=== PATIENT | female | born 1950 | race Caucasian/White ===

== ENCOUNTER → 2016-04-29 | Outpatient (CLI) | payer BC ==
[~2016-04-29] MED LIST: ATEN-174 PO; CALC-214 PO; ESCI1TAB10 PO; FISHOIL PO; FLNIN NAE; HYDR-5688 PO; HYDR25TA4 PO; MISCCAP80 PO; MULT-506 PO; VITAMIN D PO
--- NOTE | 2016-04-30 12:39 | MAMMOGRAPHY REPORT ---
BILATERAL DIGITAL SCREENING MAMMOGRAM TOMOSYNTHESIS WITH CAD: 04/29/2016 CLINICAL HISTORY: Routine screening. Patient has no complaints. TECHNIQUE: Breast tomosynthesis in addition to standard 2D mammography was performed. Current study was also evaluated with a Computer Aided Detection (CAD) system. COMPARISON: Comparison is made to exams dated: 04/26/2015 mammogram, 04/22/2013 mammogram, 04/25/2014 malachi mogram, 04/20/2012 mammogram, 04/18/2011 mammogram, and 04/06/2010 mammogram - [facility]. BREAST COMPOSITION: The tissue of both breasts is almost entirely fatty. FINDINGS: There are a few benign rim calcifications bilaterally. No suspicious mass, architectural distortion or cluster of microcalcifications is seen. IMPRESSION: ACR BI-RADS CATEGORY 1: NEGATIVE There is no mammographic evidence of malignancy. A 1 year screening mammogram is recommended. The p atient will receive written notification of the results. Approximately 10% of breast cancers are not detected with mammography. A negative mammographic repor t should not delay biopsy if a clinically suggestive mass is present. Danica Rees M.D. ay/:04/29/2016 16:30:54 Activity Therapy Teacher: Myranda LEO(Michelle)(M), [facility] letter sent: Normal 1/2 BI-RADS Code: ACR BI-RADS Category 1: Negative
== END | disposition home or self-care (01) ==
LOC: C.MAMM 11:09
PROVIDERS: ATTEND Obstetrics & Gynecology
DX: Z12.31 Encounter for screening mammogram for malignant neoplasm of breast (principal)

== ENCOUNTER → 2016-05-21 | Day surgery (SDC) | payer BC ==
[2016-05-07 10:40] VITALS: Ht 180.3 cm; Wt 97.7 kg
[2016-05-14 12:20] LABS: HEMATOCRIT 43.9 % (37-47); MEAN CELL VOLUME 88.3 fL (80-100); MEAN CORPUSCULAR HEMOGLOBIN 30.2 pg (25-34); MEAN CORPUSCULAR HGB CONC 34.2 g/dl (32-36); MEAN PLATELET VOLUME 9.1 fL (7.4-10.4); PLATELET COUNT 257 K/uL (130-400); RED BLOOD COUNT 4.97 M/uL (4.2-5.4); WHITE BLOOD COUNT 5.63 K/uL (4.8-10.8)
[2016-05-14 12:48] LABS: PROTHROMBIN TIME (PATIENT) 10.5 SECONDS (9.0-12.0)
[2016-05-14 12:53] LABS: POTASSIUM 3.6 mmol/L (3.5-5.1)
[~2016-05-21] VITALS: Ht 180.3 cm; Wt 97.7 kg
[~2016-05-21] MED LIST changes: +ACETAMINOPHEN 325 MG TAB PO PRN; +ARTIFICIAL TEARS OP OINT 3.5 GM TUBE ONE; +ATROPINE SULFATE 0.1 MG/ML 5ML SYR IV PRN; +CEFAZOLIN 2000 MG/60 ML D5W IV SCH; +DEXAMETHASONE SOD INJ 4 MG/ML VIAL ONE; +ERYTHROMYCIN OP OINT 5 MG/GM 3.5 GM TUBE ONE; +EpHEDrine SULFATE 50MG/5ML SYR ONE; +EpHEDrine SULFATE INJ 50 MG/ML AMP IV PRN; +FENTANYL CITRATE INJ 50 MCG/1 ML 2 ML VIAL IV PRN; +FENTANYL CITRATE INJ 50 MCG/1 ML 2 ML VIAL ONE; +FLUMAZENIL 0.1 MG/1 ML 10 ML VIAL IV PRN; +GENTIAN VIOLET TOP SOLN DROP CHARGE ONE; -HYDR-5688 PO; +HYDROmorphone INJ 2 MG/ML SYR/VIAL IV PRN; +LABETALOL HCL IV 5 MG/ML 20ML IV PRN; +LACTATED RINGER'S 1000ML 1,000 ML IV SCH; +LIDOCAINE HCL 2% 2 ML VIAL (20MG/ML) ONE; +LIDOCAINE/EPINEPHRINE 1% INJ 50 ML VIAL ONE; +MEPERIDINE HCL 25 MG/ML CARP IV PRN; +METOCLOPRAMIDE HCL INJ 5 MG/ML 2 ML VIAL IV PRN; +MIDAZOLAM HCL 1 MG/ML 2ML VIAL ONE; +NALOXONE HCL 0.4 MG/1 ML VIAL/CARP IV PRN; +ONDANSETRON INJ 2 MG/ML 2 ML VIAL IV PRN; +ONDANSETRON INJ 2 MG/ML 2 ML VIAL ONE; +OXYCODONE/ACETAMINOPHEN 5-325 TAB PO PRN; +PHENYLEPHRINE 100MCG/ML 5ML SYR IV PRN; +POVIDONE-IODINE OP SOLN 30 ML BTL ONE; +PROPOFOL IV EMULSION 10 MG/ML 20 ML VIAL IV ONE; +SCOPOLAMINE 1.5 MG TDSY TD ONE; +SODIUM CHLORIDE 0.9% 1000ML 1,000 ML IV SCH
--- NOTE | 2016-05-21 06:53 | History & Physical Bridge - [place] ---
H&P Re-Evaluation Bridge Note: I have examined the patient, reviewed the History & Physical and in the interval since the performance of the History & Physical I have noted the following changes of clinical significance: No changes noted
--- NOTE | 2016-05-21 08:23 | [facility] Post Operative Brief Note ---
Immediate Operative Summary Operative Date May 21, 2016. Pre-Operative Diagnosis Bilateral Upper Dermatochalasis Post-Operative Diagnosis Same Procedure(s) Performed Bilateral Upper Blepharoplasty Surgeon Dr. Schultz Physician Specialist Surgeon(s) Josue Rendon PA-C Estimated Blood Loss 2ml Findings none Specimens None Anesthesia general Complication(s) None Disposition Recovery Room / PACU
--- NOTE | 2016-05-21 08:23 | Discharge Instructions ---
Discharge Instructions Admission Reason for Admission: Bilateral Dermatochalasis Discharge Discharge Diagnosis / Problem: dermatochalasis Discharge Goals Goal(s): Decrease discomfort Activity Recommendations Activity Limitations: as noted below ACTIVITY RECOMMENDATIONS: __Normal activities _x_No bending, lifting or straining __No driving __Driving allowed when you are off pain medications __Walking permitted __You should have help at home for ___ days DRESSINGS: _x_No dressings required __Keep dressings dry/in place until first office visit __Remove dressings ___ and leave dressings off _x_Apply ice _3__ days __Remove dressings and reapply garment _x_Apply antibiotic ointment (Bacitracin, Neosporin, etc) to wounds 3-4 times/ day for 10 days (Bacitracin Ophthalmic) BATHING: __Keep dressings dry _x_Sponge bathing permitted __Showering permitted _x_No swimming, hot tubs or soaking in a tub MEDICATIONS: Resume previous medications unless instructed otherwise by your surgeon. _x_Do not use aspirin, Motrin, Advil or Ibuprofen as these may promote bleeding. Please use Tylenol. _x_Prescription(s) provided: pain medication and antibiotic ointment for eyes provided OTHER INSTRUCTIONS: __Record drain output 2-3 times per day SPECIAL CARE INSTRUCTIONS: * It is normal to have a mild fever after surgery. If your temperature is higher than 101.5 degrees F, please call the office at [phone]. * Constipation is a typical side effect of pain medication. An over-the- counter stool softener will help relieve this. * Leaking around surgical drains may occur and should not cause concern. Sometimes these drains become clogged. If this happens, remove the bulb and milk the clot out of the tube, then replace the bulb. * Drainage from wounds after liposuction is normal and should be expected. Garments will become soiled. You should protect furniture and bedding. This drainage should mostly subside within 2-3 days. Leave garments in place unless instructed to remove them. * If you have unusual drainage from a wound or are concerned you have an infection or have any questions or concerns, please call the office at [phone]. FOLLOW UP VISIT: If not already scheduled, please call the office, , when you return home after surgery to schedule an appointment to be seen in _2__ days. . Current Hospital Diet Patient's current hospital diet: Discharge Diet Recommended Diet: Regular Diet Procedures Procedures Performed: Bilateral Upper Blepharoplasty Pending Studies Studies pending at discharge: no Medical Emergencies . Who to Call and When: Medical Emergencies: If at any time you feel your situation is an emergency, please call 911 immediately. . Non-Emergent Contact Non-Emergency issues call your: Primary Care Provider, Surgeon . "Provider Documentation" section prepared by Edna Rendon. VTE Core Measure Inpt VTE Proph given/why not?: SCD's
--- NOTE | 2016-05-21 09:00 | Anesthesia Progress Nt - [facility] ---
Anesthesia Post Op Note Date & Time May 21, 2016 at 09:00 Vital Signs Pain Intensity: 0 Vital Signs Past 12 Hours Date Time Temp Pulse Resp B/P Pulse Ox O2 Delivery O2 Flow Rate FiO2 05/21/16 08:56 37 68 16 121/75 98 Room Air 05/21/16 08:38 124/75 05/21/16 08:37 69 5 05/21/16 08:37 68 5 100 05/21/16 08:33 122/78 05/21/16 08:32 70 9 100 05/21/16 08:32 71 9 05/21/16 08:31 69 13 100 05/21/16 08:31 69 13 05/21/16 08:28 123/75 05/21/16 08:26 70 19 05/21/16 08:26 71 19 96 05/21/16 08:23 127/81 05/21/16 08:21 72 12 05/21/16 08:21 36 71 12 122/78 100 Mask 8 05/21/16 08:21 72 12 100 05/21/16 06:29 37.1 70 16 124/78 96 Room Air Notes Mental Status: alert / awake / arousable, participated in evaluation Pt Amnestic to Procedure: Yes Nausea / Vomiting: adequately controlled Pain: adequately controlled Airway Patency, RR, SpO2: stable & adequate BP & HR: stable & adequate Hydration State: stable & adequate Anesthetic Complications: no major complications apparent
[2016-05-21 09:24] VITALS: TEMP 37
[2016-05-21 10:13] VITALS: BP 124/79; PULSE 68; O2SAT 96
--- NOTE | 2016-05-21 13:32 | OPERATIVE REPORT ---
DATE OF OPERATION: 05/21/2016 PREOPERATIVE DIAGNOSIS: Bilateral upper eyelid dermatochalasis. POSTOPERATIVE DIAGNOSIS: Same. PROCEDURE: Bilateral noncosmetic upper blepharoplasty. SURGEON: Dr. Kate Schultz. WAREHOUSE WORKER: Edna Rendon PA-C. ANESTHESIA: General. COMPLICATIONS: None. INDICATION FOR THE PROCEDURE: The patient is a 66-year-old female who presented to my office with concerns of visual field obstruction and failed visual field testing due to upper eyelid dermatochalasis. She was felt to be a candidate for noncosmetic upper blepharoplasty. Risks and benefits were discussed. BRIEF DESCRIPTION OF THE PROCEDURE: Risks, benefits, and alternatives of the procedure were discussed with the patient who agreed and signed consent. She was identified and marked in the preoperative holding area. She was brought to the operating room where she was positioned supine and placed under general anesthesia without incident. Surgical site was prepped and draped sterilely. Markings were assessed. The inferior incision was marked 8 mm above the ciliary margin just inferior to the supratarsal crease which measured to be about 1.1 cm. A trapezoidal shaped incision was marked taking care not to cross the medial punctum medially and carrying lateral aspect into the lateral canthal area into one of the the chickaloon's feet. Superior portion of the incision was marked 1 cm beneath the eyebrow. A Sawyer forceps was used to pinch the skin to ensure reasonable possibility of wound closure without lagophthalmos. Similar markings were applied on the right side. I began with the left side. Corneal protectors were placed in both eyes. 1% lidocaine with epinephrine was used to anesthetize the upper lids bilaterally. I began with the left. Incision was used to make the above described incisions using a 15 blade scalpel. The skin was removed from the underlying orbicularis muscle in a lateral to medial direction using electrocautery taking care to provide hemostasis throughout the dissection. Once the skin had been removed and hemostasis was assured, I incised the orbicularis muscle and orbital septum over the medial compartment. I did not have any return of any appreciable amount of fat and therefore no resection was undertaken. 6-0 nylon sutures were used to reapproximate the incisions beginning in the mid pupillary line and then closing in a lateral to medial direction. Once the closure was completed corneal protectors were removed and bacitracin ophthalmic ointment was applied. The patient was awakened and transferred to recovery in satisfactory condition. Blood loss was less than 2 mL. I attest to the content of the Intraoperative Record and any orders documented therein. Any exceptio ns are noted below.
== END | disposition home or self-care (01) ==
LOC: X.SURG 06:16
PROVIDERS: ATTEND Plastic Surgery
DX: H02.831 Dermatochalasis of right upper eyelid (principal); H02.834 Dermatochalasis of left upper eyelid; J30.9 Allergic rhinitis, unspecified; F41.8 Other specified anxiety disorders; E78.5 Hyperlipidemia, unspecified; I10 Essential (primary) hypertension; C43.9 Malignant melanoma of skin, unspecified; M62.59 Muscle wasting and atrophy, not elsewhere classified, multiple sites; M18.9 Osteoarthritis of first carpometacarpal joint, unspecified; G25.81 Restless legs syndrome; R35.0 Frequency of micturition; E55.9 Vitamin D deficiency, unspecified; Z98.890 Other specified postprocedural states

== ENCOUNTER → 2016-08-09 | Outpatient (CLI) | payer BC ==
[~2016-08-09] MED LIST changes: -ACETAMINOPHEN 325 MG TAB PO PRN; -ARTIFICIAL TEARS OP OINT 3.5 GM TUBE ONE; -ATROPINE SULFATE 0.1 MG/ML 5ML SYR IV PRN; -CEFAZOLIN 2000 MG/60 ML D5W IV SCH; -DEXAMETHASONE SOD INJ 4 MG/ML VIAL ONE; -ERYTHROMYCIN OP OINT 5 MG/GM 3.5 GM TUBE ONE; -EpHEDrine SULFATE 50MG/5ML SYR ONE; -EpHEDrine SULFATE INJ 50 MG/ML AMP IV PRN; -FENTANYL CITRATE INJ 50 MCG/1 ML 2 ML VIAL IV PRN; -FENTANYL CITRATE INJ 50 MCG/1 ML 2 ML VIAL ONE; -FISHOIL PO; -FLUMAZENIL 0.1 MG/1 ML 10 ML VIAL IV PRN; -GENTIAN VIOLET TOP SOLN DROP CHARGE ONE; -HYDROmorphone INJ 2 MG/ML SYR/VIAL IV PRN; -LABETALOL HCL IV 5 MG/ML 20ML IV PRN; -LACTATED RINGER'S 1000ML 1,000 ML IV SCH; -LIDOCAINE HCL 2% 2 ML VIAL (20MG/ML) ONE; -LIDOCAINE/EPINEPHRINE 1% INJ 50 ML VIAL ONE; -MEPERIDINE HCL 25 MG/ML CARP IV PRN; -METOCLOPRAMIDE HCL INJ 5 MG/ML 2 ML VIAL IV PRN; -MIDAZOLAM HCL 1 MG/ML 2ML VIAL ONE; -NALOXONE HCL 0.4 MG/1 ML VIAL/CARP IV PRN; -ONDANSETRON INJ 2 MG/ML 2 ML VIAL IV PRN; -ONDANSETRON INJ 2 MG/ML 2 ML VIAL ONE; -OXYCODONE/ACETAMINOPHEN 5-325 TAB PO PRN; -PHENYLEPHRINE 100MCG/ML 5ML SYR IV PRN; -POVIDONE-IODINE OP SOLN 30 ML BTL ONE; -PROPOFOL IV EMULSION 10 MG/ML 20 ML VIAL IV ONE; -SCOPOLAMINE 1.5 MG TDSY TD ONE; -SODIUM CHLORIDE 0.9% 1000ML 1,000 ML IV SCH
[2016-08-09 14:42] LABS: BASO % 0.9 %; BASO ABS # 0.04 K/uL (0-0.2); COMPLETE YES; EOS % 3.6 %; HEMATOCRIT 45.2 % (37-47); IG% 0.2 %; LYMPH % 26.2 %; LYMPH ABS # 1.23 K/uL (1.2-3.4); MEAN CELL VOLUME 90.4 fL (80-100); MEAN CORPUSCULAR HGB CONC 34.3 g/dl (32-36); MEAN PLATELET VOLUME 9.8 fL (7.4-10.4); MONO % 10.4 %; NEUT % 58.7 %; PLATELET COUNT 254 K/uL (130-400)
[2016-08-09 14:46] LABS: ESTIMATED AVERAGE GLUCOSE 120 mg/dl; HA1C FLAG Normal (Normal)
[2016-08-09 14:48] LABS: URINE APPEARANCE CLOUDY (CLEAR); URINE BILIRUBIN NEG (NEG); URINE COLOR YELLOW; URINE EPITHELIAL CELL AUTO >30 /lpf (0-5); URINE NITRITE POS (NEG); URINE SPECIFIC GRAVITY 1.017 (1.000-1.030); UROBILINOGEN NEG (NEG)
[2016-08-09 14:57] LABS: MANUAL MICROSCOPIC REQUIRED? NO; REVIEW REQ? YES
[2016-08-09 14:58] LABS: ALT/SGPT 56 U/L (12-78); AST/SGOT 33 U/L (15-37); BLOOD UREA NITROGEN 15 mg/dl (7-18); BUN/CREATININE RATIO 16.6 (10-20); CALCIUM 9.1 mg/dl (8.5-10.1); CARBON DIOXIDE 32 mmol/L (21-32); CHLORIDE 104 mmol/L (98-107); CREATININE 0.89 mg/dl (0.60-1.20); GLUCOSE 102 mg/dl (70-99); POTASSIUM 3.6 mmol/L (3.5-5.1); SODIUM 141 mmol/L (136-145)
[2016-08-09 15:02] LABS: ALB/GLOB RATIO 1.2 (0.9-2); ALKALINE PHOSPHATASE 58 U/L (45-117)
--- NOTE | 2016-08-15 12:37 | CODING QUERY MEDICAL NECESSITY ---
SUPPORTING DIAGNOSIS NEEDED A supporting diagnosis is required for the test/procedure performed on this patient in order for us to be reimbursed by the patient's insurance. Please provide a supporting diagnosis for the following test/procedure listed below next to the test name along with your signature. *If there is no additional diagnosis for this patient that would support the following test/procedure please document that below next to the test/procedure. Test(s)/Procedure(s) that require a supporting diagnosis: DOS 08/09 * Hba1c DIAGNOSIS: Provider Signature: Date: Thank you Mary Kay Dueñas Health Information Management Once completed, please kindly fax back to [phone] For questions please call [phone]
== END | disposition home or self-care (01) ==
LOC: C.LABBC 10:00
PROVIDERS: ATTEND Family Medicine
DX: R30.0 Dysuria (principal); Z11.59 Encounter for screening for other viral diseases; Z01.818 Encounter for other preprocedural examination; I10 Essential (primary) hypertension; R73.03 Prediabetes; E55.9 Vitamin D deficiency, unspecified

== ENCOUNTER → 2016-08-14 | Outpatient (CLI) | payer BC ==
--- NOTE | 2016-08-14 13:28 | DIAGNOSTIC IMAGING REPORT ---
LEFT RIBS INCLUDING PA ERECT CHEST CLINICAL HISTORY: Left-sided rib pain status post trauma COMPARISON STUDY: Chest x-ray dated 10/01/2005 FINDINGS: The erect chest reveals no pneumothorax. There is no focal pulmonary consolidation. No acute rib fractures are visualized. IMPRESSION: No evidence of pneumothorax. No acute left-sided rib fractures are visualized. Electronically signed by: Miguel Fall M.D. 08/14/2016 1:26 PM Dictated Date/Time: 08/14/2016 1:24 PM
--- NOTE | 2016-08-14 13:39 | DIAGNOSTIC IMAGING REPORT ---
LUMBAR SPINE 5 VIEWS CLINICAL HISTORY: Low back pain. FINDINGS: Five views of the lumbar spine are correlated with MRI of the lumbar spine dated 05/08/[address] dated 10/01/2009. The skeletal structures are osteopenic. There is no radiographic evidence of fracture or malalignment. Vertebral body height is maintained throughout the lumbar spine. There is moderate lumbar levocurvature centered at L2-L3. There is grade 1 retrolisthesis at L2-L3. Alignment is otherwise preserved. Anterior and lateral marginal osteophytes are seen throughout. The transverse and spinous processes appear intact. There is no evidence of spondylolysis. Moderate facet arthropathy is seen in the mid to lower lumbar region. There is moderate to advanced degenerative disc space narrowing at T12-L1, L1-L2, and L2-L3 with associated endplate sclerosis. Milder degenerative disc space narrowing is seen at the remaining lumbar levels. The bony pelvis is intact as visualized. Sclerotic change is noted in the sacroiliac joints. Cholecystectomy clips are present in the right upper quadrant. 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 There is mild atherosclerotic calcification of the abdominal aorta. A nonobstructed bowel gas pattern is observed. IMPRESSION: 1. There is no acute bony abnormality identified involving the lumbosacral spine. 2. Osteopenia with lumbosacral spondylosis and scoliosis as above. Dictated: 08/14/2016 1:24 PM Transcribed: 08/14/2016 1:38 PM Tee Electronically signed by: Isma Coe M.D. 08/14/2016 1:43 PM Dictated Date/Time: 08/14/2016 1:24 PM
== END | disposition home or self-care (01) ==
LOC: C.RADBC 12:38
PROVIDERS: ATTEND Physician Assistant
DX: M54.5 Low back pain (principal); M85.88 Other specified disorders of bone density and structure, other site

== ENCOUNTER → 2017-02-11 | Outpatient (CLI) | payer BC ==
--- NOTE | 2017-02-11 11:33 | DIAGNOSTIC IMAGING REPORT ---
SOFT TIS HEAD/NECK-THYROID HISTORY: Thyroid enlargement THYROMEGALY COMPARISON: None. FINDINGS: Right lobe: Maximum dimension 5.7 cm. Multinodular configuration. Largest nodule measures 9 mm. Left lobe: Multinodular configuration with a greatest dimension of 4.9 cm. Nodules measure up to 8 mm. Isthmus: Minimal multinodular IMPRESSION: Multinodular thyroid with no nodularity exceeding 8 mm in maximum dimension on the left and 9 mm on the right. A six-month follow-up is suggested The above report was generated using voice recognition software. It may contain grammatical, syntax or spelling errors. Electronically signed by: Freddie Saucedo M.D. 02/11/2017 11:31 AM Dictated Date/Time: 02/11/2017 11:30 AM
== END | disposition home or self-care (01) ==
LOC: C.ULTRBC 10:42
PROVIDERS: ATTEND Physician Assistant Medical
DX: E01.0 Iodine-deficiency related diffuse (endemic) goiter (principal); E04.2 Nontoxic multinodular goiter

== ENCOUNTER → 2017-02-12 | Outpatient (CLI) | payer BC ==
[2017-02-12 11:20] LABS: ALT/SGPT 38 U/L (12-78); AST/SGOT 21 U/L (15-37); BLOOD UREA NITROGEN 16 mg/dl (7-18); BUN/CREATININE RATIO 17.7 (10-20); CALCIUM 8.7 mg/dl (8.5-10.1); CARBON DIOXIDE 27 mmol/L (21-32); CHLORIDE 104 mmol/L (98-107); CREATININE 0.89 mg/dl (0.60-1.20); GLUCOSE 108 mg/dl (70-99); POTASSIUM 3.4 mmol/L (3.5-5.1); SODIUM 138 mmol/L (136-145)
[2017-02-12 11:31] LABS: ALB/GLOB RATIO 1.1 (0.9-2); ALKALINE PHOSPHATASE 59 U/L (45-117); CHOLESTEROL 197 mg/dl (0-200); CHOLESTEROL/HDL RATIO 5.8; HDL CHOLESTEROL 34 mg/dl; TRIGLYCERIDES 377 mg/dl (0-150); VERY LOW DENSITY LIPOPROT CALC 75 mg/dl
[2017-02-12 11:32] LABS: MANUAL MICROSCOPIC REQUIRED? NO; REVIEW REQ? NO; URINE APPEARANCE CLEAR (CLEAR); URINE BILIRUBIN NEG (NEG); URINE COLOR YELLOW; URINE EPITHELIAL CELL AUTO 0-5 /lpf (0-5); URINE NITRITE POS (NEG); URINE PH 5.5 (4.5-7.5); URINE SPECIFIC GRAVITY 1.013 (1.000-1.030); UROBILINOGEN NEG (NEG)
--- NOTE | 2017-02-17 13:30 | CODING QUERY MEDICAL NECESSITY ---
SUPPORTING DIAGNOSIS NEEDED A supporting diagnosis is required for the test/procedure performed on this patient in order for us to be reimbursed by the patient's insurance. Please provide a supporting diagnosis for the following test/procedure listed below next to the test name along with your signature. *If there is no additional diagnosis for this patient that would support the following test/procedure please document that below next to the test/procedure. Test(s)/Procedure(s) that require a supporting diagnosis: * VITAMIN B12 DIAGNOSIS: Provider Signature: Date: Thank you Dorcas Vilas [employer] Information Management Once completed, please kindly fax back to [phone] For questions please call [phone]
== END | disposition home or self-care (01) ==
LOC: C.LABBC 08:54
PROVIDERS: ATTEND Physician Assistant Medical
DX: R39.9 Unspecified symptoms and signs involving the genitourinary system (principal); E78.5 Hyperlipidemia, unspecified; R53.83 Other fatigue

== ENCOUNTER → 2017-04-17 | Outpatient (CLI) | payer BC ==
[2017-04-17 13:38] LABS: URINE APPEARANCE CLEAR (CLEAR); URINE BILIRUBIN NEG (NEG); URINE COLOR YELLOW; URINE NITRITE POS (NEG); URINE PH 5.5 (4.5-7.5); URINE SPECIFIC GRAVITY 1.011 (1.000-1.030); UROBILINOGEN NEG (NEG)
[2017-04-17 13:43] LABS: MANUAL MICROSCOPIC REQUIRED? NO; REVIEW REQ? NO
== END | disposition home or self-care (01) ==
LOC: C.LABBC 11:22
PROVIDERS: ATTEND Nurse Practitioner Adult Health
DX: R39.9 Unspecified symptoms and signs involving the genitourinary system (principal)

== ENCOUNTER → 2017-04-30 | Outpatient (CLI) | payer BC ==
--- NOTE | 2017-04-30 15:31 | MAMMOGRAPHY REPORT ---
BILATERAL DIGITAL SCREENING MAMMOGRAM TOMOSYNTHESIS WITH CAD: 04/30/2017 CLINICAL HISTORY: Routine screening. Patient has no complaints. TECHNIQUE: Breast tomosynthesis in addition to standard 2D mammography was performed. Current study was also evaluated with a Computer Aided Detection (CAD) system. COMPARISON: Comparison is made to exams dated: 04/29/2016 mammogram, 04/26/2015 mammogram, 04/25/2014 mamm ogram, 04/22/2013 mammogram, 04/20/2012 mammogram, and 04/18/2011 mammogram - [facility]. BREAST COMPOSITION: The tissue of both breasts is almost entirely fatty. FINDINGS: No suspicious mass, architectural distortion or cluster of microcalcifications is seen. IMPRESSION: ACR BI-RADS CATEGORY 1: NEGATIVE There is no mammographic evidence of malignancy. A 1 year screening mammogram is recommended. The pa tient will receive written notification of the results. Approximately 10% of breast cancers are not detected with mammography. A negative mammographic report should not delay biopsy if a clinically suggestive mass is present. Danica dillon/viral:04/30/2017 11:26:42 [employer] Consultant: Amira LEO(R)(M), [facility] letter sent: Normal 1/2 BI-RADS Code: ACR BI-RADS Category 1: Negative
== END | disposition home or self-care (01) ==
LOC: C.MAMM 11:04
PROVIDERS: ATTEND Obstetrics & Gynecology
DX: Z12.31 Encounter for screening mammogram for malignant neoplasm of breast (principal)

== ENCOUNTER → 2017-07-24 | Outpatient (CLI) | payer BC ==
--- NOTE | 2017-07-24 10:32 | DIAGNOSTIC IMAGING REPORT ---
THYROID ULTRASONOGRAPHY CLINICAL HISTORY: E04.1 multinodular thyroid gland COMPARISON STUDY: January 2017 FINDINGS: The right lobe measures 60 x 20 x 18 mm. There are multiple right lobe nodules. Many contain colloid artifact. Additional small microcalcifications cannot be excluded. The largest measures 14 x 11 x 8 mm. This remain similar to the preceding study. The left lobe measures 52 x 17 x 15 mm. There are multiple left lobe nodules. The largest measures 10 x 9 x 8 mm. The largest nodule is a hyperechoic lower pole nodule. This previously measured 9 x 7 x 7 mm. A 3 mm isthmus calcification is again visualized. IMPRESSION: Multinodular thyroid gland, similar to the preceding study. Electronically signed by: Miguel Fall M.D. 07/24/2017 10:31 AM Dictated Date/Time: 07/24/2017 10:29 AM
== END | disposition home or self-care (01) ==
LOC: C.ULTRBC 09:50
PROVIDERS: ATTEND Nurse Practitioner Adult Health
DX: E04.2 Nontoxic multinodular goiter (principal)

== ENCOUNTER → 2017-12-15 | Outpatient (CLI) | payer BC | END | disposition home or self-care (01) | LOC: C.MAMM 09:28 | PROVIDERS: ATTEND Nurse Practitioner Adult Health | DX: Z78.0 Asymptomatic menopausal state (principal) ==